=== PATIENT | female | born 2000 | race Two or more races ===

== ENCOUNTER → 2023-03-02 | Emergency (ER) | payer OTHER ==
[~2023-03-02] VITALS: Ht 154.9 cm; Wt 74.8 kg
== END | disposition home or self-care (01) ==
LOC: ER 19:16
DX: N94.6 Dysmenorrhea, unspecified (principal); R10.9 Unspecified abdominal pain; Z88.0 Allergy status to penicillin; Z88.1 Allergy status to other antibiotic agents; Z91.018 Allergy to other foods